=== PATIENT | male | born 1940 | race Caucasian/White ===

== ENCOUNTER 2016-05-29 09:15 | Emergency (ER) | payer OTHER ==
[2016-05-29 09:21] VITALS: BP 149/85; PULSE 78; RESP 18; TEMP 97.5; O2SAT 95
[2016-05-29] MEDS ORDERED: TDAP ADULT 0.5 ML VIAL (BOOSTRIX) IM ONE (09:26)
--- NOTE | 2016-05-29 09:31 | EDPHY ---
HPI/HX/ROS/PE/MDM Narrative: Chief complaint: Scalp laceration HPI: 76-year-old male was [place] [employer] this morning when he walked into a tree branch. He sustained a laceration to the right side of his head. Patient states that he thinks the branch was moving from the wind. It did not fall off the tree. He did not fall to the ground. He had no loss of consciousness. Last tetanus was about 10 years ago. Otherwise is without complaint at this time. ROS: 10 point Review of Systems is negative except as noted in the HPI. Physical exam: General: Awake, alert, no acute distress Head: He has a 6 cm linear laceration over the right parietal scalp. There is no underlying scalp deformity, crepitus. There is no active bleeding. Pupils equal round reactive to light and accommodation. Neck: Nontender, full range of motion without pain . Extremities: Atraumatic ED Course: Procedure: Laceration repair. Verbal consent was obtained from the patient. The 6 cm laceration on the right scalp was anesthetized in the usual fashion. The wound was irrigated, draped and explored to its base with a gloved finger. There were no deep structures involved. The wound was repaired with 10 marixa. The wound repair was uncomplicated. The procedure was performed by myself. Patient was given a tetanus booster in the emergency department - Data Points Medications Given: Discontinued Medications Diphtheria/Tetanus/Acell Pertussis (Boostrix) 0.5 ml IM .ONCE ONE Stop: 05/29/16 09:27 Last Admin: 05/29/16 09:36 Dose: 0.5 ml General Time Seen by Provider: 05/29/16 09:22 Initial Vital Signs: Initial Vital Signs Temperature (C) 36.4 C 05/29/16 09:15 Heart Rate 78 05/29/16 09:15 Respiratory Rate 18 05/29/16 09:15 Blood Pressure 149/85 H 05/29/16 09:15 O2 Sat (%) 95 05/29/16 09:15 O2 Delivery Mode Room Air Allergies/Adverse Reactions: No Known Allergies Allergy (Unverified 05/29/16 09:21) Home Medications: Medication Instructions Recorded Acyclovir [Zovirax 200 mg (*)] 200 mg PO 05/29/16 Departure - Departure Disposition: Home, Routine, Self-Care Clinical Impression: Laceration Condition: Good Instructions: Laceration (ED), Staple Care (ED), Diphtheria/Acellular Pertussis /Tetanus Booster Vaccine (By injection) Additional Instructions: Follow up with her primary care physician in 10 days for staple removal. Return to the emergency department for increasing pain, nausea, vomiting, discharge from the wound, or any other concerns.
== END 2016-05-29 09:49 | disposition home or self-care (01) ==
PROC: 0HQ0XZZ Repair Scalp Skin, External Approach (ICD-10-PCS; principal; 2016-05-29)
DX: S01.01XA Laceration without foreign body of scalp, initial encounter (principal); Z23 Encounter for immunization; X58.XXXA Exposure to other specified factors, initial encounter; Y99.8 Other external cause status; Y93.01 Activity, walking, marching and hiking

== ENCOUNTER → 2017-09-20 | Outpatient (CLI) | payer OTHER | LOC: CIMAGING 20:30 | PROVIDERS: ATTEND Internal Medicine Critical Care Medicine | DX: A31.0 Pulmonary mycobacterial infection (principal); J98.11 Atelectasis | CPT/HCPCS: 71046-PO; 99000-PO ==

== ENCOUNTER → 2018-02-22 | Outpatient (CLI) | payer OTHER | LOC: CIMAGING 09:15 | PROVIDERS: ATTEND Internal Medicine Critical Care Medicine | DX: J47.9 Bronchiectasis, uncomplicated (principal); J98.11 Atelectasis; I25.10 Atherosclerotic heart disease of native coronary artery without angina pectoris; N28.9 Disorder of kidney and ureter, unspecified; K76.9 Liver disease, unspecified | CPT/HCPCS: 71250-PO ==

== ENCOUNTER 2018-04-04 09:53 | Day surgery (SDC) | payer OTHER ==
[2018-04-04] MEDS ORDERED: NS 500 ML IV ONE (10:04)
[2018-04-04] MEDS ORDERED: LIDOCAINE 1% 2 ML INJ ID PRN (10:04)
[2018-04-04] MEDS ORDERED: ALBUTEROL 3 ML DEYVIAL IH ONE (10:04)
[2018-04-04] MEDS ORDERED: EPINEPHrine 1 MG/ML INJ ONE (10:55)
[2018-04-04] MEDS ORDERED: LIDOCAINE 1% 300 MG/30 ML SDV ONE (10:55)
[2018-04-04] MEDS ORDERED: fentaNYL 100 MCG/2 ML INJ ONE (10:55)
[2018-04-04] MEDS ORDERED: MIDAZOLAM 2 MG/2 ML VIAL ONE (10:55)
[2018-04-04] MEDS ORDERED: BENZOCAINE UNIT DOSE SPRAY HURRICAINE MM ONE (10:56)
[2018-04-04] MEDS ORDERED: LIDOCAINE 2% JELLY 20 ML (UROJECT) TP ONE (11:15)
[2018-04-04] MEDS ORDERED: ALBUTEROL 3 ML DEYVIAL ONE (13:39)
[2018-04-04] MEDS ORDERED: fentaNYL 100 MCG/2 ML INJ IVP ONE (14:30)
[2018-04-04] MEDS ORDERED: MIDAZOLAM 2 MG/2 ML VIAL IVP ONE (14:30)
--- NOTE | 2018-04-04 14:30 | PDHPUP ---
History & Physical Update H&P update statement: This history and physical update is based on an assessment of the patient which was completed after admission or registration (within 24 hours), but prior to the surgery/procedure. H&P update: H&P reviewed & patient examined, no change in patient's condition since H&P completed
[2018-04-04 14:34] VITALS: BP 138/77
--- NOTE | 2018-04-04 14:36 | BVPULMO ---
[facility] Surgical Services- Pulmonology Patient Name: Kelly Whitaker Procedure Date: 04/04/2018 1:22 PM Patient Type: Outpatient Attending MD/ER Physician: Dre Osorio MD Procedure: Bronchoscopy Indications: Diagnostic bronchoalveolar lavage, Chronic cough and bronchiectasis Providers: Dre Osorio MD Medicines: Lidocaine 1% applied to cords 2 mL, Lidocaine 1% applied to the tracheobronchia l tree mL, Fentanyl mcg IV, Midazolam mg IV Complications: No immediate complications Procedure: After informed consent, a time out was performed. N95 masks were worn, and the procedure was done in a negative pressure room. The patient was given appropria te topical anesthesia and intravenous sedation. The fiberopic bronchoscope was pas sed via a bite block orally into the larynx and subsequently into the lower trachea bronchial tree. Throughout the procedure, the patient's blood pressure, pulse, and oxygen saturations were monitored continuously. The Bronchoscope (Video) was introduced through the mouth and advanced to the tracheobronchial tree of both lungs. A wedge position was obtained in the right middle lobe, and a BAL was performed with return of cloudy blood-tinged fluid. The procedure was accomplis hed without difficulty. The patient tolerated the procedure well. Findings: Specific locations: The following were directly visualized, and are normal: lar ynx, vocal cord motion, trachea, mateusz, left mainstem bronchus, right mainstem bron chus, bronchus intermedius, left upper lobe including subsegments,left lower lobe including subsegments, right upper lobe including subsegments, right middle lob e including subsegments, right lower lober including subsegments. Right Lung Abnormalities: Small amount of scattered purulent secretions. There was bronchiectasis, and I was able to advance the bronchoscope further into the air ways on the right side than is typical. Washings were obtained and sent for cell count, bacterial culture, viral smears & culture, and fungal & AFB analysis. The return was cloudy and blood-tinged. Post Op Diagnosis: - Bronchoalveolar lavage - Chronic cough - Washings were obtained from the right middle lobe. Estimated Blood Loss: Estimated blood loss was minimal. Recommendation: - The patient was advised to call or return to the clinic if there are signs or symptoms suggesting a complication/adverse reaction from the procedure. Dre Osorio MD 04/04/2018 2:36:09 PM Number of Addenda: 0 Note Initiated On: 04/04/2018 1:22 PM [email or web address]
== END 2018-04-04 15:50 | disposition home or self-care (01) ==
LOC: FSGY 09:53
PROVIDERS: ATTEND Internal Medicine Critical Care Medicine
PROC: 0B9D8ZX Drainage of Right Middle Lung Lobe, Via Natural or Artificial Opening Endoscopic, Diagnostic (ICD-10-PCS; principal; 2018-04-04 11:15)
DX: J47.9 Bronchiectasis, uncomplicated (principal)
CPT/HCPCS: J0171; J2250; J3010; J7613